=== PATIENT | female | born 2000 | race Two or more races ===

== ENCOUNTER 2024-06-12 15:49 | Emergency (ER) | payer MEDICAID, SELFPAY ==
[2024-06-12 15:50] VITALS: BMI 25.3
[2024-06-12 16:25] VITALS: BP 147/90; PULSE 74; RESP 20; TEMP 36.6; O2SAT 96
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
== END 2024-06-12 18:34 | disposition home or self-care (01) ==
PROVIDERS: Emergency Provider Emergency Medicine
DX: S13.4XXA Sprain of ligaments of cervical spine, initial encounter (principal); S20.212A Contusion of left front wall of thorax, initial encounter; V89.2XXA Person injured in unspecified motor-vehicle accident, traffic, initial encounter
CPT/HCPCS: 71101; 72040; 99283